=== PATIENT | male | born 1945 | race Caucasian/White ===

== ENCOUNTER 2023-01-20 17:02 | Emergency (ER) | payer OTHER ==
[~2023-01-20] VITALS: Ht 175.3 cm; Wt 31.9 kg
[2023-01-20 17:17] LABS: HEMOGLOBIN 12.1 g/dL (12.0-18.0); RDW 16.6 (10.5-15.0)
[2023-01-20 17:20] LABS: EOSINOPHILS 2.5 % (0-6); HEMATOCRIT 36.5 % (35.0-50.0); LYMPHOCYTES 41.8 % (24-44); MCH 31.5 (27-36); MCHC 33.2 g/dl (30-36); MCV 94.8 fl (81-99); NEUTROPHILS 47.7 % (39-80); PLATELET COUNT 203 K/uL (140-440); RBC 3.84 M/ul (4.3-5.7)
[2023-01-20 17:34] LABS: ALBUMIN 3.5 g/dL (3.4-5.0); ALBUMIN/GLOBULIN RATIO 1.03 (1.1-2.4); BILIRUBIN, TOTAL 0.2 ng/dL (0.2-1.0); BUN/CREATININE RATIO 17.5 (6.0-28.6); CALCIUM 8.8 mg/dL (8.5-10.1); CREATININE, SERUM 0.8 mg/dL (0.70-1.30); PROTEIN, TOTAL 6.9 g/dL (6.4-8.2)
[2023-01-20] MEDS ORDERED: METOPROLOL SUCC25 MG PO (17:42)
[2023-01-20] MEDS ORDERED: K-TAB ER20 MEQ PO (17:43)
[2023-01-20 17:44] LABS: INR 0.95 (0.80-1.30); PROTIME 12.3 Sec (11.2-14.2)
[2023-01-20 20:15] LABS: AMPHETAMINES, UR NEGATIVE (NEGATIVE); BARBITURATES, UR NEGATIVE (NEGATIVE); BENZODIAZEPINES, UR NEGATIVE (NEGATIVE); BUPRENORPHINE,UR NEGATIVE (NEGATIVE); COCAINE, UR NEGATIVE (NEGATIVE); MARIJUANA (THC), UR NEGATIVE (NEGATIVE); MDMA, UR NEGATIVE (NEGATIVE); METHADONE, UR NEGATIVE (NEGATIVE); METHAMPHETAMINE, UR NEGATIVE (NEGATIVE); OPIATES, UR NEGATIVE (NEGATIVE); OXYCODONE, UR NEGATIVE (NEGATIVE); PHENCYCLIDINE, UR NEGATIVE (NEGATIVE); TRICYCLIC ANTIDEPRESSANT, UR NEGATIVE (NEGATIVE)
[2023-01-21 16:23] VITALS: BP 170/95
--- NOTE | 2023-01-23 05:47 | EKG ---
[facility] [address] [place], [place] [address] Signed Sinus rhythm with 1st degree AV block Right bundle branch block Abnormal ECG No previous ECGs available Confirmed by PATRICIA MCKENZIE MD ([id number] on 01/23/2023 5:47:42 AM Electronically Signed By: PATRICIA MCKENZIE 01/23/23 0547 PATIENT NAME: LEA WARD Electrocardiogram DATE OF : 43 PHYSICIAN: PATRICIA MCKENZIE REPORT #: [id number] REPORT IS CONFIDENTIAL AND NOT TO BE RELEASED WITHOUT AUTHORIZATION
== END 2023-01-21 16:25 | disposition home or self-care (01) ==
LOC: ED 17:02
PROVIDERS: Family Medicine
DX: S02.2XXA Fracture of nasal bones, initial encounter for closed fracture (principal); R45.851 Suicidal ideations; F10.129 Alcohol abuse with intoxication, unspecified; Y90.8 Blood alcohol level of 240 mg/100 ml or more; W19.XXXA Unspecified fall, initial encounter
CPT/HCPCS: 36415; 70450; 70486; 70496; 70498; 71045; 72125; 80053; 82140; 84484; 85025; 85610; 85730; 93005; 93010; 99285-25; A9270; G0480

== ENCOUNTER 2023-02-06 18:55 | Emergency (ER) | payer OTHER ==
[~2023-02-06] VITALS: Ht 175.3 cm; Wt 54.4 kg
[~2023-02-06 18:55] MED LIST: K-TAB ER20 MEQ PO; METOPROLOL SUCC25 MG PO
--- OUTSIDE RECORDS SUMMARY | 2023-02-06 19:03 | XMS ---
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 Garret has no Care Guidelines for this patient. Rajat VISIT COUNT (12 MO.) [address] [facility] [place] TOTAL 3 NOTE: Visits indicate total known visits. ED/C VISIT TRACKING (12 MO.) 02/06/2023 18:55 [facility] [place] TYPE: Emergency COMPLAINT: - FALL 01/20/2023 17:03 [facility] [place] TYPE: Emergency COMPLAINT: - STROKE SYMPTOMS DIAGNOSES: - Alcohol abuse with intoxication, unspecified - Blood alcohol level of 240 mg/100 ml or more - Fracture of nasal bones, initial encounter for closed fracture - Suicidal ideations - Unspecified fall, initial encounter 11/17/2022 13:26 [facility] [place] TYPE: Emergency COMPLAINT: - MEDICAL CLEARANCE DIAGNOSES: - Alcohol dependence, uncomplicated - Blood alcohol level of 240 mg/100 ml or more - Contusion of eyeball and orbital tissues, right eye, initial encounter - Encounter for issue of other medical certificate - Essential (primary) hypertension - Suicidal ideations - Unspecified dementia, unspecified severity, without behavioral disturbance, psychotic disturbance, mood disturbance, and anxiety - Unspecified fall, initial encounter INPATIENT VISIT TRACKING (12 MO.) No inpatient visits to display in this time frame [email or web address]
[2023-02-06 19:29] LABS: BASOPHILS 1.3 % (0-2); EOSINOPHILS 1.3 % (0-6); HEMATOCRIT 37.8 % (35.0-50.0); HEMOGLOBIN 12.5 g/dL (12.0-18.0); LYMPHOCYTES 33.5 % (24-44); MCH 31.7 (27-36); MCHC 32.9 g/dl (30-36); MCV 96.2 fl (81-99); MONOCYTES 7.8 % (0-12); NEUTROPHILS 56.1 % (39-80); PLATELET COUNT 215 K/uL (140-440); RBC 3.93 M/ul (4.3-5.7); RDW 16.4 (10.5-15.0)
[2023-02-06 19:53] LABS: ACETAMINOPHEN 0 ug/mL (10-30); ALBUMIN 3.8 g/dL (3.4-5.0); ALBUMIN/GLOBULIN RATIO 1.15 (1.1-2.4); ALCOHOL, MEDICAL 296 ng/dL (<3); ALKALINE PHOSPHATASE 72 U/L (46-116); ALT (SGPT) 24 U/L (14-59); ANION GAP 14.1 (7-21); AST (SGOT) 27 U/L (15-37); BILIRUBIN, TOTAL 0.4 ng/dL (0.2-1.0); BUN/CREATININE RATIO 9.37 (6.0-28.6); CALCIUM 9.4 mg/dL (8.5-10.1); CARBON DIOXIDE 30 mmol/L (21-32); CHLORIDE 107 mmol/L (98-107); CREATININE, SERUM 0.96 mg/dL (0.70-1.30); GLOMERULAR FILTRATION RATE,EST 81 mL/min (>60); POTASSIUM 3.1 mmol/L (3.5-5.1); PROTEIN, TOTAL 7.1 g/dL (6.4-8.2); SALICYLATE 2.2 mg/dL (2.8-20.0); TSH, 3RD GENERATION 1.004 uIU/mL (0.358-3.740); UREA NITROGEN 9 mg/dL (7-18)
[2023-02-06 23:10] LABS: BILIRUBIN, URINE NEGATIVE (negative); BLOOD/HGB, URINE NEGATIVE (Negative); KETONE, URINE NEGATIVE (Negative); LEUK ESTERASE, URINE NEGATIVE (negative); NITRITE, URINE NEGATIVE (negative); PH, URINE 5.5 (5-7)
[2023-02-06 23:15] LABS: AMPHETAMINES, UR NEGATIVE (NEGATIVE); BARBITURATES, UR NEGATIVE (NEGATIVE); BENZODIAZEPINES, UR NEGATIVE (NEGATIVE); BUPRENORPHINE,UR NEGATIVE (NEGATIVE); COCAINE, UR NEGATIVE (NEGATIVE); MARIJUANA (THC), UR NEGATIVE (NEGATIVE); MDMA, UR NEGATIVE (NEGATIVE); METHADONE, UR NEGATIVE (NEGATIVE); METHAMPHETAMINE, UR NEGATIVE (NEGATIVE); OPIATES, UR NEGATIVE (NEGATIVE); OXYCODONE, UR NEGATIVE (NEGATIVE); PHENCYCLIDINE, UR NEGATIVE (NEGATIVE); TRICYCLIC ANTIDEPRESSANT, UR NEGATIVE (NEGATIVE)
[2023-02-07 10:09] VITALS: BP 138/89
== END 2023-02-07 10:11 | disposition home or self-care (01) ==
LOC: ED 18:55
PROVIDERS: Family Medicine
DX: R45.851 Suicidal ideations (principal); F10.129 Alcohol abuse with intoxication, unspecified; Z59.00 Homelessness unspecified; Z79.899 Other long term (current) drug therapy
CPT/HCPCS: 36415; 80053; 81003; 84443; 85025; 99285; A9270; G0480

== ENCOUNTER 2023-06-03 21:11 | Emergency (ER) | payer OTHER ==
[~2023-06-03] VITALS: Ht 175.3 cm; Wt 61.2 kg
[2023-06-03 21:38] LABS: BASOPHILS 0.5 % (0-2); EOSINOPHILS 0.9 % (0-6); HEMATOCRIT 39.4 % (35.0-50.0); HEMOGLOBIN 13.3 g/dL (12.0-18.0); LYMPHOCYTES 17.9 % (24-44); MCH 30.3 (27-36); MCHC 33.7 g/dl (30-36); MCV 89.9 fl (81-99); MONOCYTES 5.8 % (0-12); NEUTROPHILS 74.9 % (39-80); PLATELET COUNT 237 K/uL (140-440); RBC 4.39 M/ul (4.3-5.7); RDW 13.8 (10.5-15.0)
[2023-06-03 22:06] LABS: ACETAMINOPHEN 0 ug/mL (10-30); ALBUMIN 3.7 g/dL (3.4-5.0); ALBUMIN/GLOBULIN RATIO 1.09 (1.1-2.4); ALKALINE PHOSPHATASE 72 U/L (46-116); ALT (SGPT) 15 U/L (14-59); ANION GAP 11.7 (7-21); AST (SGOT) 22 U/L (15-37); BILIRUBIN, TOTAL 0.3 ng/dL (0.2-1.0); BUN/CREATININE RATIO 5.74 (6.0-28.6); CALCIUM 8.7 mg/dL (8.5-10.1); CARBON DIOXIDE 30 mmol/L (21-32); CHLORIDE 107 mmol/L (98-107); CREATININE, SERUM 0.87 mg/dL (0.70-1.30); GLOMERULAR FILTRATION RATE,EST 88 mL/min (>60); POTASSIUM 3.7 mmol/L (3.5-5.1); PROTEIN, TOTAL 7.1 g/dL (6.4-8.2); SALICYLATE 1.4 mg/dL (2.8-20.0); TSH, 3RD GENERATION 1.833 uIU/mL (0.358-3.740); UREA NITROGEN 5 mg/dL (7-18)
[2023-06-03 22:14] LABS: ALCOHOL, MEDICAL 315 ng/dL (<3)
[2023-06-03 22:47] LABS: BILIRUBIN, URINE NEGATIVE (negative); BLOOD/HGB, URINE TRACE (Negative); KETONE, URINE NEGATIVE (Negative); PH, URINE 6 (5-7)
[2023-06-03 22:48] LABS: LEUK ESTERASE, URINE NEGATIVE (negative); NITRITE, URINE NEGATIVE (negative)
[2023-06-03 22:49] LABS: EPITHELIAL CELLS, URINE 0 /lpf (0-1+); REFLEX CULTURE, URINE No (No); WHITE BLOOD CELLS, URINE 0-1 /HPF (0-5)
[2023-06-03 23:10] LABS: BARBITURATES, URINE NEGATIVE (NEGATIVE); BENZODIAZEPINE, URINE NEGATIVE (NEGATIVE); BUPRENORPHINE, URINE NEGATIVE (NEGATIVE); CANNABINOID, URINE NEGATIVE (NEGATIVE); COCAINE, URINE NEGATIVE (NEGATIVE); ECSTASY, URINE NEGATIVE (NEGATIVE); FENTANYL, URINE NEGATIVE (NEGATIVE); METHADONE, URINE NEGATIVE (NEGATIVE); OPIATES, URINE NEGATIVE (NEGATIVE); OXYCODONE, URINE NEGATIVE (NEGATIVE); PHENCYCLIDINE, URINE NEGATIVE (NEGATIVE)
[2023-06-03 23:24] LABS: AMPHETAMINES, URINE NEGATIVE (NEGATIVE)
--- NOTE | 2023-06-04 05:53 | EKG ---
[facility] [address] [place], [place] [address] Signed Sinus rhythm with 1st degree AV block Right bundle branch block Abnormal ECG No previous ECGs available Confirmed by PETER GIL MD ([id number] on 06/04/2023 5:53:19 AM Electronically Signed By: PETER GIL 06/04/23 0553 PATIENT NAME: LEA WARD ISIDORO Electrocardiogram DATE OF : 43 PHYSICIAN: PETER GIL REPORT #: [id number] REPORT IS CONFIDENTIAL AND NOT TO BE RELEASED WITHOUT AUTHORIZATION
[2023-06-04 11:59] VITALS: BP 196/113
== END 2023-06-04 12:00 | disposition home or self-care (01) ==
LOC: ED 21:11
PROVIDERS: Internal Medicine
DX: F10.129 Alcohol abuse with intoxication, unspecified (principal); R45.851 Suicidal ideations; Z79.899 Other long term (current) drug therapy
CPT/HCPCS: 36415; 80053; 80307; 81001; 84443; 85025; 93005; 93010; 96360; 99285-25; A9270; G0480; J7121